=== PATIENT | male | born 1975 | race Caucasian/White ===

== ENCOUNTER 2017-11-12 20:35 | Emergency (ER) | payer OTHER, MEDICAID ==
[~2017-11-12] VITALS: Ht 185.4 cm; Wt 136.1 kg
[~2017-11-12 20:35] MED LIST: BACTROBAN22 GM TP; CENTANY30 GM TOP; FLEXERIL PO; IBUPROFEN 800800 M1 PO; KEFLEX500 MG PO; MECLIZINE HCL25 M1 PO; MEDROLDOSEPACK PO; MOTRIN OTC; PERCOCET 5-3251 EACH PO; PERCOCET PO; ROBAXIN 750 MG750 MG PO
[2017-11-12] MEDS ORDERED: CIPROFLOXIN HC2.5 M1 OTIC (20:59)
[2017-11-12] MEDS ORDERED: KEFLEX500 M1 PO (20:59)
[2017-11-12] MEDS ORDERED: PERCOCET PO (21:00)
[2017-11-12 21:12] VITALS: BP 171/118
== END 2017-11-12 21:13 | disposition home or self-care (01) ==
LOC: M.ERS 20:35
DX: H66.93 Otitis media, unspecified, bilateral (principal); H60.93 Unspecified otitis externa, bilateral; F17.210 Nicotine dependence, cigarettes, uncomplicated; Z88.5 Allergy status to narcotic agent

== ENCOUNTER 2018-10-10 15:09 | Emergency (ER) | payer OTHER, MEDICAID ==
[~2018-10-10] VITALS: Ht 185.4 cm; Wt 140.6 kg
[~2018-10-10 15:09] MED LIST changes: +CIPROFLOXIN HC2.5 M1 OTIC; +KEFLEX500 M1 PO
[2018-10-10] MEDS ORDERED: MOBIC15 MG PO (16:37)
[2018-10-10] MEDS ORDERED: MEDROL DOSPAK21 TA1 PO (16:37)
[2018-10-10 17:40] VITALS: BP 164/98
== END 2018-10-10 17:41 | disposition home or self-care (01) ==
LOC: M.ERS 15:09
DX: M25.561 Pain in right knee (principal); M25.511 Pain in right shoulder; M54.17 Radiculopathy, lumbosacral region; F17.210 Nicotine dependence, cigarettes, uncomplicated; W00.0XXA Fall on same level due to ice and snow, initial encounter; Y93.89 Activity, other specified; Y92.89 Other specified places as the place of occurrence of the external cause; Y99.8 Other external cause status